=== PATIENT | male | born 1980 | race Caucasian/White ===

== ENCOUNTER → 2022-04-02 | Outpatient (CLI) | payer OTHER | LOC: M LAB 10:48 | PROVIDERS: ATTEND Registered Nurse Psychiatric/Mental Health | DX: F11.21 Opioid dependence, in remission (principal) | CPT/HCPCS: 36415; 82077; G0480 ==

== ENCOUNTER → 2022-08-06 | Outpatient (CLI) | payer OTHER | LOC: M LAB 16:11 | DX: F11.21 Opioid dependence, in remission (principal) ==

== ENCOUNTER → 2023-03-24 | Outpatient (CLI) | payer OTHER | LOC: M LAB 11:31 | PROVIDERS: ATTEND Registered Nurse Psychiatric/Mental Health | DX: F11.21 Opioid dependence, in remission (principal); Z79.899 Other long term (current) drug therapy ==

== ENCOUNTER → 2024-05-17 | Outpatient (CLI) | payer OTHER ==
[2024-05-17 11:30] LABS: PSA SCREENING 0.35 NG/ML (< 4.00)
[2024-05-17 11:35] LABS: FOLLICLE STIMULATING HORMONE 7.2 mIU/ML (1.4-18.1)
[2024-05-17 11:36] LABS: ESTRADIOL 20.4 PG/ML (<39.8); LUTEINIZING HORMONE 2.2 mIU/ML (1.5-9.3)
== END ==
LOC: M PLALAB 08:52
PROVIDERS: ATTEND Physician Assistant
DX: E29.1 Testicular hypofunction (principal)